=== PATIENT | female | born 2000 | race Hispanic/Latino ===

== ENCOUNTER 2021-02-08 14:36 | Outpatient (CLI) | payer OTHER ==
[~2021-02-08] VITALS: Ht 154.9 cm; Wt 91.7 kg
[2021-02-08 14:58] VITALS: BP 118/80
[2021-02-08] MEDS ORDERED: PRENTAB53 PO (15:00)
[2021-02-08 15:55] LABS: TOTAL PROTEIN,RANDOM URINE 40.5 MG/DL (0.0-12.0)
[2021-02-08 16:02] LABS: HEMATOCRIT 37.8 % (36.0-47.0); HEMOGLOBIN 12.3 g/dl (12.0-15.5); MEAN CORPUSCULAR HEMOGLOBIN 30.2 pg (27.0-33.0); MEAN CORPUSCULAR HGB CONC 32.5 g/dl (32.0-36.5); MEAN CORPUSCULAR VOLUME 92.9 fl (80.0-96.0); PLATELET COUNT, AUTOMATED 206 10^3/uL (150-450); RED BLOOD COUNT 4.07 10^6/uL (4.00-5.40); WHITE BLOOD COUNT 9.7 10^3/uL (4.0-10.0)
[2021-02-08 16:23] LABS: ALBUMIN 2.5 GM/DL (3.2-5.2); ALT/SGPT 18 U/L (12-78); AMYLASE 67 U/L (25-115); BILIRUBIN,TOTAL 0.2 MG/DL (0.2-1.0); BLOOD UREA NITROGEN 10 MG/DL (7-18); CARBON DIOXIDE LEVEL 22 MEQ/L (21-32); CHLORIDE LEVEL 110 MEQ/L (98-107); CREATININE FOR GFR 0.39 MG/DL (0.55-1.30); GLOMERULAR FILTRATION RATE > 60.0 (>60); GLUCOSE, FASTING 76 MG/DL (70-100); LDH LACTATE DEHYDROGENASE 190 U/L (84-246); LIPASE 121 U/L (73-393); SODIUM LEVEL 141 MEQ/L (136-145); TOTAL PROTEIN 6.4 GM/DL (6.4-8.2); URIC ACID 3.1 MG/DL (2.6-6.0)
[2021-02-08] MEDS ORDERED: ACETAMINOPHEN 500 MG TAB PO ONE (16:40)
[2021-02-08] MEDS ORDERED: CYCLOBENZAPRINE 10MG TABLET PO ONE (16:40)
--- NOTE | 2021-02-08 16:55 | IPNPDOC ---
Text Note Date of Service The patient was seen on 02/08/21. NOTE 20 yo at 36+5 weeks gestation presented to L&D with the complaint of abdominal pain, intermittent contractions, swelling in her feet, and decreased movement. She reports these symptoms have been present since last night. She describes the abdominal pain as occurring in her RUQ. She denies any association with eating or drinking. She denies n/v. She also denies any fevers/chills. She reports feeling the baby move but not as much as usual. Her swelling in her feet has been worsening as well too. She denies any headaches, RUQ pain, visual changes, or SOB. She reports feeling very hungry. Chaperoned by RN Vitals - VSS, afebrile, normotensive, non tachycardic General - sitting up in bed, AAOX3, NAD Abdomen - gravid uterus appropriate size for gestational age. No fundal tenderness. No rebound tenderness, guarding, or peritoneal signs. Cervix - Ft/thick/high, posterior. Unchanged on recheck > 1hour later. Extremities - 2+ edema in lower extremities FHR tracing - Cat I with moderate variability, +accels, no decels. Intermittent ctx on toco. Labs: Urinalysis - SG 1.027, 1+ blood, 1+ leuk est, 1+ protein urine pr:cr - 0.26 CBC - 9.7>12.3/37.8<206 BMP - 141/4.0--110/22--10/0.39<76 AST/ALT - 21/18 Amylase - 67 Lipase - 121 LDH - 190 Low suspicion for acute intraabdominal process. Lab work unremarkable and patient felt very hungry in triage. Dehydration likely contributing to symptoms based on urine SG. Cat I tracing with +accels and no decels. Patient felt movement in triage and was reassured. CMP, urine, and CBC not consistent with Pre E and Isha was normotensive. Cervix unchanged on serial exams. She felt significant improvement in symptoms after tylenol and flexeril. Discharged home with precautions. Follow up next week in the office as scheduled. Return to care sooner for worsening pain, bleeding, leakage of fluid, decreased movement, headaches, RUQ pain, visual changes, SOB, or any other urgent concerns. All questions answered. 60 minutes of patient care Chase Staples I+O VS, Chase, I+O Laboratory Tests 02/08/21 15:38 Vital Signs Date Time Temp Pulse Resp B/P (MAP) Pulse Ox O2 Delivery O2 Flow Rate FiO2 02/08/21 14:58 98.2 101 16 118/80 (93) 02/08/21 14:57 99 Room Air ALYSON BECKWITH DO February 08, 2021 16:55
[2021-02-08 17:11] VITALS: BP 124/73
[2021-02-08 18:11] VITALS: BP 120/72
== END 2021-02-08 18:20 | disposition home or self-care (01) ==
LOC: M LDO 14:36
PROVIDERS: ATTEND Obstetrics & Gynecology
DX: O26.893 Other specified pregnancy related conditions, third trimester (principal); Z3A.36 36 weeks gestation of pregnancy; R10.11 Right upper quadrant pain; O36.8130 Decreased fetal movements, third trimester, not applicable or unspecified; O12.03 Gestational edema, third trimester
CPT/HCPCS: 36415; 59025; 80053; 81001; 82150; 82247; 82565; 82570; 83615; 83690; 84156; 84450; 84460; 84550; 85027; 87086; G0378; G0463

== ENCOUNTER 2021-02-20 18:17 | Outpatient (CLI) | payer OTHER ==
[~2021-02-20] VITALS: Ht 154.9 cm; Wt 93.6 kg
[~2021-02-20 18:17] MED LIST: PRENTAB53 PO
[2021-02-20 19:33] VITALS: BP 137/73
[2021-02-20 19:35] VITALS: BP 120/60
[2021-02-20] MEDS ORDERED: FLUCONAZOLE 50MG TABLET PO ONE (22:00)
--- NOTE | 2021-02-20 22:08 | REPVR ---
PROCEDURE INFORMATION: Exam: US , Limited Exam date and time: 02/20/21 (8:58pm) Age: 20 years old Clinical indication: female (at 38 weeks 3 days). States leaking fluid today. Borderline low fluid. TECHNIQUE: Imaging protocol: Real-time ultrasound of the maternal uterus with image documentation. Examination focused on the clinical indication. COMPARISON: No relevant prior studies available FINDINGS: The LMP is reported to be: 05/27/20 A single live intrauterine is identified, approx. 38 weeks 3 days composite gestational age (CASSIE = 03/03/21). age parameters were not obtained at this time. heart rate is recorded at 135 bpm. The fetus lies cephalic. The placenta is anterior, with no evidence of previa. The placenta is Grade III. The cervix is closed, measuring 4.3 cm in length. Amniotic fluid volume is adequate, with the VIVI = 16.3 cm (at the 60th percentile for the current expected age). The deepest fluid pocket = 6.5 cm. Umbilical artery S/D ratio = 2.48 (in the normal range for this age). The stomahc, kidneys, and urinary bladder appear unremarkable. Cord seen draped over the neck. Cannot exclude nuchal cord. IMPRESSION: A single live intrauterine is identified, approx. 38 weeks 3 days gestational age. Based on data provided, the CASSIE = 03/03/21. heartbeat is seen. The placenta is anterior, with no previa noted. The cervix is closed. Cord seen draped over the neck. Cannot exclude nuchal cord. VIVI = 16.3 cm, and is adequate (at the 60th percentile for this age). Electronically signed by: Maggie Patel On 02/20/2021 22:08:20 PM
--- NOTE | 2021-02-20 22:33 | IPNPDOC ---
Text Note Date of Service The patient was seen on 02/20/21. NOTE 20 yo at 38+3 weeks gestation presented to L&D with the complaint of leakage of fluid starting at 1700 today. She denies any bleeding. She endorses intermittent contractions. She endorses excellent movement. Chaperoned by RN Vitals - VSS, afebrile, normotensive, non tachycardic General - AAOX3, sitting up in bed, NAD Abdomen - Gravid uterus appropriate size for gestational age, no fundal tenderness Pelvic - normal external female genitalia. Speculum inserted into the vagina. Copious chunky white discharge noted in the vaginal vault. Swabs obtained. Cervix visualized and normal appearing. No pooling of fluid. Negative leak of fluid with valsalva. Speculum removed. Cervix /-3 to digital exam. Microscopy - Negative ferning. Negative nitrazine. Large amount of yeast on slide. Bedside TAUS ( anatomy not assessed): Viable SIUP in cephalic presentation. +gross movement. VIVI somewhat difficult to ascertain secondary to movement and maternal body habitus. Formal US: IMPRESSION: A single live intrauterine is identified, approx. 38 weeks 3 days gestational age. Based on data provided, the CASSIE = 03/03/21. heartbeat is seen. The placenta is anterior, with no previa noted. The cervix is closed. Cord seen draped over the neck. Cannot exclude nuchal cord. VIVI = 16.3 cm, and is adequate (at the 60th percentile for this age). Electronically signed by: Maggie Patel On 02/20/2021 22:08:20 PM A/P: No evidence of ruptured membranes. Negative pooling, negative nitrazine, negative ferning. Formal VIVI normal. Cervix unchanged from the office a couple days ago. Reassuring status. Patient given dose of diflucan PO due to yeast infection. Patient discharged home with return precautions. All patient and questions answered. 45 minutes of patient care Sagar Puentes DO VS,Chase, I+O VS, Fishbone, I+O Vital Signs Date Time Temp Pulse Resp B/P (MAP) Pulse Ox O2 Delivery O2 Flow Rate FiO2 02/20/21 19:35 98.4 99 18 120/60 (80) SAGAR PUENTES DO Feb 20, 2021 22:33
== END 2021-02-20 22:26 | disposition home or self-care (01) ==
LOC: M LDO 18:17 → UNDOADMIN 18:17 → M LDI 18:17 → UNDODISIN 22:26 → M LDO 22:26 → EDSTATUS 02-24 16:46
PROVIDERS: ATTEND Registered Nurse Maternal Newborn
DX: O47.1 False labor at or after 37 completed weeks of gestation (principal); Z3A.38 38 weeks gestation of pregnancy; O23.593 Infection of other part of genital tract in pregnancy, third trimester; B37.9 Candidiasis, unspecified
CPT/HCPCS: 59025; 76815; 76820; G0378; G0463

== ENCOUNTER 2021-02-21 15:47 | Outpatient (CLI) | payer OTHER ==
[~2021-02-21] VITALS: Ht 154.9 cm; Wt 92.8 kg
[2021-02-21 16:01] VITALS: BP 131/78
--- NOTE | 2021-02-21 17:17 | IPNPDOC ---
Obstetrical Progress Note Date of Service Feb 21, 2021 Subjective Ms. Shoemaker is a 20yo at 38+4 presenting for ROM check. She reports she felt like her water broke again, as she came in yesterday for a ROM check, at 1400 today. She also passed a dime sized blood clot. She otherwise denied regular painful contractions or decreased FM. She otherwise denied n/v/d, cp, sob, wall, visual changes, f/c, urinary sx. Assessment Heart Rate (FHR): 135 Variability: Moderate Accelerations: Positive Decelerations: None Heart Rate Tracing: Category I Tocometer Contractions: Yes Frequency: irregular Sterile Vaginal Examination Dilation: 1cm Station: -3 Cervical Consistency: Medium Cervical Position: Posterior Postion/Presentation: Cephalic presentation Assessment and Plan Status: Reassuring Additional Comments Ms. Shoemaker is a 20yo at 38+4 presenting for ROM check, she had a negative ROM check yesterday. She also passed a dime sized clot once today. VS normal. CAT I tracing reactive. Irregular contractions. On exam small amount of discharge but no pooling with valsalva and no ferning. CHLOE/WP were negative. There was no old blood or active bleeding. White swab placed into posterior fornix and there was no evidence of bleeding. She has had prior scans ruling out placenta previa. On TAUS today her baby was cephalic, +FM, with MVP 6.5cm. Her SVE was 1/50/-3 which is unchanged from yesterday. Given the clinical picture rupture and labor are unlikley at this time. The bleeding is likely from disruption of the cervix yesterday during her exam. Patient was educated on routine OB return precautions and is to otherwise follow up at her next [place]. GEOFFREY JOHN DO Feb 21, 2021 17:17
[2021-02-22] MEDS ORDERED: ACET-842 PO (08:08)
== END 2021-02-21 17:15 | disposition home or self-care (01) ==
LOC: M LDO 15:47
PROVIDERS: ATTEND Registered Nurse Maternal Newborn
DX: O26.853 Spotting complicating pregnancy, third trimester (principal); Z3A.38 38 weeks gestation of pregnancy
CPT/HCPCS: 59025; 76815; 87086; G0378; G0463

== ENCOUNTER 2021-02-22 07:05 | Inpatient (IN) | payer OTHER ==
[2021-02-22] VITALS (39 sets, daily range): BP systolic 117–198; BP diastolic 58–102
[~2021-02-22] VITALS: Ht 154.9 cm; Wt 93.0 kg
[2021-02-22] MEDS ORDERED: ACET-842 PO (08:08)
--- NOTE | 2021-02-22 08:13 | HPEPDOC ---
Obstetrical History & Physical General Date of Admission Feb 22, 2021 at 07:58 History of Present Illness Ms. Shoemaker is a 20yo at 38+5 who presented to labor and delivery in early labor and was having mild range blood pressures. She denied vb, lof, decreased fm. She denied n/v/d, cp, sob, wall, visual changes, abd pain, f/c, urinary sx. 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 Past Medical History Medical History overweight, excessive weight gain in , varicella non-immune Surgical History: Denies/None Family History Significant Family History: No pertinent family hx Social History Marital Status: Family situation: Spouse/partner home Psychosocial History: No pertinent psych hx * Smoker: non-smoker Alcohol: Denies Drugs: denies Imunizations Tdap status: current Influenza Status: needs Allergies Coded Allergies: No Known Allergies (Unverified , 02/22/21) Medications Scheduled Vit,Calc76/Iron/Folic (Prenatabs Rx Tablet) 1 Each Tablet, 1 TAB PO DAILY Physical Examination Physical Examination GENERAL: Alert and oriented times three. BREAST: . ABDOMEN: Gravid and non-tender to touch. FETUS: Is vertex (VTX) by sterile vaginal examination (SVE), fetus is vertex (VTX) by US HEART RATE: Regular rate and rhythm. LUNGS: Clear to auscultation (CTA). EXTREMITIES: No edema. No clonus. Laboratory Data Urine Culture: No Growth (TOC0), Urinary Tract Infection Pertinent Laboratoy Data Blood Type: A- RBC Antibody Screen: Negative HIV: Negative Hepatitis B: Negative Rubella: Immune Varicella: Nonreactive Chlamydia/Gonorrhea: Negative Group B Streptococcus: Negative Quad Screen Test: Negative Cystic Fibrosis: Declined Glucose Tolerance Test: 127 Anatomy Ultrasound Placenta Location: Anterior Normal Anatomy: Yes Steroid Therapy Steroid Therapy: No Vaginal Examination Dilation: 4 cm Effacement: 90% Station: -2 Cervical Consistency: Soft Cervical Position: Middle Presentation: Cephalic presentation (by US) Assessment Heart Rate (FHR): 140 Variability: Moderate Accelerations: Positive Decelerations: None Tocometer Contractions: Yes Frequency: regular Multi-drug resistant Organism: No history of MDRO Assessment/Plan Assessment Ms. Shoemaker is a 20yo at 38+5 who presented to labor and delivery in early labor and was having mild range blood pressures. She denied si/sx of pre- eclampsia. She was 4/90/-1 on arrival with a BBOW. CAT I NST. APC 1. Rh negative, recieved 28wk rhogam 2. overweight, excessive weight gain 64# 3. varicella non-immune Rh neg, GBS neg, ceph by US, EFW 3600, placenta anterior Plan Admit and orient. Precision Dancer and consent. Diet: clears Group B Streptococcus (GBS) [negative]. Labs and intravenous (IV) per unit protocol. Counseled on Pitocin and induction of labor (IOL). Lactated Ringers (LR): saline lock Anticipate [normal spontaneous delivery ()]. C-S as appropriate. GEOFFREY JOHN DO Feb 22, 2021 08:13
[2021-02-22] MEDS ORDERED: LIDOCAINE 1% MDV 20ML VIAL INFIL PRN (08:15)
[2021-02-22] MEDS ORDERED: OXYTOCIN DRIP 30 UNITS in IV 1 EA IV PRN (08:15)
[2021-02-22 08:37] LABS: HEMATOCRIT 40.8 % (36.0-47.0); HEMOGLOBIN 13.6 g/dl (12.0-15.5); MEAN CORPUSCULAR HEMOGLOBIN 30.4 pg (27.0-33.0); MEAN CORPUSCULAR HGB CONC 33.3 g/dl (32.0-36.5); MEAN CORPUSCULAR VOLUME 91.3 fl (80.0-96.0); PLATELET COUNT, AUTOMATED 197 10^3/uL (150-450); RED BLOOD COUNT 4.47 10^6/uL (4.00-5.40); WHITE BLOOD COUNT 12.8 10^3/uL (4.0-10.0)
[2021-02-22] MEDS ORDERED: LACTATED RINGER'S 1000 ML IV STA (08:50)
--- NOTE | 2021-02-22 09:00 | IPNPDOC ---
Text Note Date of Service The patient was seen on 02/22/21. NOTE Assuming Care Note: Assuming care of this 20-year-old 2, para 0010 at 38w5d EGA with a PNC c/b Rh- blood type, Overweight with excessive weight gain of 64 pounds in this , and Varicella Non-Immune. Patient was admitted in early active labor at 4 cm, 90% effaced, -1. She denies a history of asthma & chronic hypertension. Also denies history of abdominal surgeries. She is Rh-, GBS negative, Rubella Immune, Hepatitis B, HIV and RPR negative. Admission hematocrit was 40.8%. Placenta is anterior. Vertex presentation was confirmed by examination. EFW is 3500 g. Last SVE: /-1 at 07:30. heart tracing, heart rate 140 bpm with moderate variability, positive accelerations, no decelerations. TOCO: regular uterine contractions Plan: Patient would like epidural anesthesia at this time. Will provide 1000 mL bolus of lactated Ringer's. Will repeat SVE 2 hours after last check Hardeep Jones, Ph.D. [employer]ENT Staff Chase BHATIA I+Chase ALMANZA I+Art Laboratory Tests 02/22/21 08:24 DALLAS MENDOZA M.D. Feb 22, 2021 09:00
[2021-02-22 09:13] LABS: ALT/SGPT 16 U/L (12-78); BILIRUBIN,TOTAL 0.2 MG/DL (0.2-1.0); GLOMERULAR FILTRATION RATE > 60.0 (>60); LDH LACTATE DEHYDROGENASE 241 U/L (84-246); URIC ACID 3.5 MG/DL (2.6-6.0)
[2021-02-22] MEDS ORDERED: FENTANYL 2MCG/ML ROPIVACAINE 0.2% IN 0.9% NACL 100ML IVBAG As Ordered ONE (09:27)
[2021-02-22] MEDS ORDERED: REFRIGERATOR IV KEYS XX PRN (10:45)
[2021-02-22] MEDS ORDERED: EPIDURAL COMMENT XX SCH (10:45)
[2021-02-22] MEDS ORDERED: FENTANYL/ROPIVACAINE/NACL BAG 100 ML EPIDURAL SCH (10:45)
[2021-02-22] MEDS ORDERED: diphenhydrAMINE 50MG/ML VIAL (J1200) IV PRN (10:45)
[2021-02-22] MEDS ORDERED: EPIDURAL/PCA KEYS XX PRN (10:45)
[2021-02-22] MEDS ORDERED: LACTATED RINGER'S 1000 ML IV PRN (10:45)
[2021-02-22] MEDS ORDERED: ePHEDrine SULFATE 25 MG/5 ML(5MG/ML) SYRINGE IV PRN (10:45)
[2021-02-22] MEDS ORDERED: ONDANSETRON 4MG/2ML VIAL IV PRN (10:45)
[2021-02-22] MEDS ORDERED: NALOXONE INJ 0.4MG/1ML VIAL (J2310 PER 1MG) IV PRN (10:45)
--- NOTE | 2021-02-22 12:31 | IPNPDOC ---
Obstetrical Progress Note Date of Service Feb 22, 2021 Subjective Mrs. Isha Shoemaker is a 20yo at 38w5d ega admitted in Early Active Labor at /-1. Patient reports still being uncomfortable after her epidural was placed. Anesthesiologist to room and increased bolus. Assessment Heart Rate (FHR): 130 Variability: Moderate Accelerations: Positive Decelerations: None Heart Rate Tracing: Category I Tocometer Contractions: Yes Frequency: regular, every 1-3 min. Sterile Vaginal Examination Dilation: 5 cm Effacement (%): 90% Station: 0 Cervical Consistency: Soft Cervical Position: Middle Postion/Presentation: Cephalic presentation Assessment and Plan Age: 20 : 2 Term: 0 Pre-term: 0 Abortions: 1 Livin EGA at Admission: 38 Weeks & Days 38w5d Status: Reassuring Group B Streptococcus: Negative Anticipate: Vaginal Delivery Additional Comments A/P: 20yo at 38w5d ega who is in early active labor at /0. - Amniotomy performed productive of clear fluid - Repeat SVE in 2-hours, or as clinically indicated - Continue to monitor FHT Jenny Jones., Ph.D [employer] OB-TREATMENT MANAGER Staff DALLAS MENDOZA M.D. Feb 22, 2021 12:31
--- NOTE | 2021-02-22 13:56 | IPNPDOC ---
Obstetrical Progress Note Date of Service Feb 22, 2021 Subjective Mrs. Isha Shoemaker is a 20yo at 38w5d ega admitted in Early Active Labor at 4/90/-1 on Wednesday, 22 Feb 2021. Patient states that she feels "lots of pressure". Assessment Heart Rate (FHR): 130 Variability: Moderate Accelerations: Positive Decelerations: None Heart Rate Tracing: Category I Tocometer Contractions: Yes Frequency: regular, every 1-3 min. Sterile Vaginal Examination Dilation: complete Effacement (%): 100% Station: +2 Cervical Consistency: Soft Cervical Position: Anterior Postion/Presentation: Cephalic presentation Assessment and Plan Age: 20 : 2 Term: 1 Pre-term: 0 Abortions: 1 Livin Weeks & Days 38+5 Status: Reassuring Group B Streptococcus: Negative Anticipate: Vaginal Delivery Additional Comments Will begin pushing. DALLAS MENDOZA M.D. Feb 22, 2021 13:56
[2021-02-22] MEDS ORDERED: MEASLES,MUMPS,RUBELLA VACCINE INJ (MMR-II) (90707) SC SCH (14:40)
[2021-02-22] MEDS ORDERED: DIBUCAINE 1% OINTMENT 30GM TOP PRN (14:40)
[2021-02-22] MEDS ORDERED: ACETAMINOPHEN TAB 650MG DOSE (2X325MG) PO PRN (14:40)
[2021-02-22] MEDS ORDERED: RHOGAM 300 MCG (1500 IU) INJ (J2790) IM SCH (14:40)
[2021-02-22] MEDS ORDERED: IBUPROFEN 600MG TAB PO PRN (14:40)
[2021-02-22] MEDS ORDERED: ACETAMINOPHEN 500 MG TAB PO PRN (14:40)
[2021-02-22] MEDS ORDERED: DOCUSATE SODIUM 100MG CAPSULE PO PRN (14:40)
--- NOTE | 2021-02-22 14:47 | DNPDOC ---
[facility] Delivery Note Delivery Note DATE OF DELIVERY: 22 February 2021 at 14:17 PREDELIVERY DIAGNOSIS: 38w5d ega POST DELIVERY DIAGNOSIS: Delivered. PROCEDURE: Spontaneous Vaginal Delivery PATIENT SVCS MGR: Arvin Mendoza M.D., Ph.D. ANESTHESIA: Epidural ESTIMATED BLOOD LOSS: 400mL FINDINGS: 7 pound 1 ounce (3190-grams) male , Score 9/9 DELIVERY SUMMARY: Mrs. Sharif progressed steadily after admission and AROM to C/C/+2. She had a strong urge to push. The bed was broken down and she was prepped for delivery. With excellent effort over about only 16 minutes her baby delivered. Presentation was OA with restitution to ROT. A loose nuchal cord was reduced at the perineum. The left anterior shoulder delivered with gentle traction followed easily by the remainder of the body. The infant was dried and stimulated on the field and a bulb suction was used. The infant was placed on the maternal abdomen and cried vigorously. The three vessel umbilical cord was then clamped and cut by the FOB after appropriate time delay and under my direction. Third stage was completed with gentle traction on on the cord and it was productive of an intact placenta. The uterus was firmed with massage, pitocin IV bolus, and methergine 0.2mg IM. Inspection of the cervix, vagina, labia, and perineum revealed a midline second degree laceration. This was repaired with 2-0 vicryl suture in the usual fashion. There was excellent cosmesis and hemostasis after the repair. The fundus was palpated again and was firm. 1000mcg of Cytotec was placed rectally to ensure uterine contraction. Sponge, instrument, and needle counts were correct X2. Mother and infant stable when I left the room. ARVIN MENDOZA M.D. Feb 22, 2021 14:47
[2021-02-22] MEDS ORDERED: METHYLERGONOVINE MALEATE 0.2 MG/ML VIAL (J2210) IV STA (14:49)
[2021-02-22] MEDS: IBUPROFEN 800 MG TAB PO PRN (20:30)
[2021-02-23 06:00] VITALS: BP 114/56
--- NOTE | 2021-02-23 07:14 | IPNPDOC ---
Progress Note Date of Service: Feb 23, 2021 Day#: 1 Progress Note SUBJECT: Mrs. Isha Shoemaker is a 20yo G2 now P1011 who is PPD#1 status post an uncomplicated spontaneous vaginal delivery at 38w5d ega. Mrs. Shoemaker delivered a male infant on Wednesday, 22 February 2021 at 14:17 with APGARS 9/9. Following delivery, she was found to have a 2nd degree perineal laceration that was repaired in the standard fashion. This morning, the patient reports that her pain is minimal; she has been a mbulating; voiding spontaneously; passing flatus; and is tolerating a regular diet. She is currently bottle feeding (w/ thoughts of converting to breast feeding) and reports minimal lochia. OBJECTIVE: VITAL SIGNS: Within normal limits, afebrile. General: Alert and oriented times three. Lungs: Breath sounds clear to auscultation. Heart rate: Regular rate and rhythm, no murmurs, rubs or gallops. Abdomen: Fundus firm at U-2. Soft, NTTP. Minimal lochia (per pt report) ASSESSMENT: Mrs. Isha Shoemaker is a 20yo G2 now P1011 who is PPD#1 status post an uncomplicated spontaneous vaginal delivery who is hemodynamically stable and doing well. PLAN: 1. Tylenol and Motrin for pain. 2. Encouraged patient to attempt breast feeding (if she is truly interested) and increased ambulation. 3. Patient will consider what type of contraception she would like and let us know on PPD#2 4. Patient to determine if she would like her son circumcised and let us know on PPD#2 5. Routine PP visit in 6 weeks in clinic. 6. Discussed return precautions at length. VS, I&O, 24H, Fishbone Vital Signs/I&O Vital Signs Date Time Temp Pulse Resp B/P (MAP) Pulse Ox O2 Delivery O2 Flow Rate FiO2 02/23/21 06:00 97.1 104 18 114/56 (75) 99 Room Air I&O- Last 24 Hours up to 6 AM 02/23/21 06:00 Output Total 400 ml Balance -400 ml Laboratory Data 24H LABS Laboratory Tests 2 02/22/21 08:10: Serology Scanned Report Hepatitis B Testing 02/22/21 08:24: Nucleated Red Blood Cells % (auto) 0.0, Glomerular Filtration Rate > 60.0, Uric Acid 3.5, Total Bilirubin 0.2, Aspartate Amino Transf (AST/SGOT) 24, Alanine Aminotransferase (ALT/SGPT) 16, Lactate Dehydrogenase 241 CBC/BMP Laboratory Tests 02/22/21 08:24 DALLAS MENDOZA M.D. Feb 23, 2021 07:14
[2021-02-23] MEDS: PRENATAL VITAMINS CHEWABLE TABLET PO SCH (07:48)
[2021-02-23] MEDS: IBUPROFEN 800 MG TAB PO PRN (07:48)
[2021-02-23] MEDS ORDERED: METAL LOCK LOOP XX ONE (08:52)
[2021-02-23 17:53] VITALS: BP 115/63
[2021-02-24] MEDS ORDERED: ACET-683 PO (05:32)
--- NOTE | 2021-02-24 05:38 | OBDS ---
[facility] Obstetrical Discharge Sum. Obstetrical Discharge Summary Date: Feb 24, 2021 Time: 05:30 : 2 Term: 1 Pre-term: 0 Abortions: 1 Livin VDRL: ABO Blood Group (B-) Rh: Negative Rubella: Immune Sex: Male Infant Weight: pounds (7), ounces (1), grams (3190) Anesthesia: Regional Anesthesia A/P, Post Course List any complications Admission diagnosis: Early Active Labor with mild range blood pressures. Discharge diagnosis: Spontaneous Vaginal Delivery Condition at Discharge: Stable Discharge Instructions: Home Activity: As tolerated Diet: Regular Medications: Motrin & Tylenol Follow-up: 6-week visit at [facility] Other: None SUBJECT: Mrs. Isha Shoemaker is a 20yo G2 now P1011 who is PPD#2 status post an uncomplicated spontaneous vaginal delivery at 38w5d ega. Mrs. Shoemaker delivered a male weighing 3190-grams with APGARS 9/9 on Wednesday, 22 February 2021 at 14:17. Following delivery, she was found to have a 2nd degree perineal laceration that was repaired in the standard fashion. EBL was 400mL. This morning, the patient reports that her pain is minimal; she has been ambulating; voiding spontaneously; passing flatus; and is tolerating a regular diet. She is currently bottle feeding (w/ thoughts of converting to breast feeding) and reports minimal lochia. The patient was given Rhogam on PPD#1. Of note, her male infant was circumcised on Wednesday, 23 February 2021. OBJECTIVE: VITAL SIGNS: Within normal limits, afebrile. General: Alert and oriented times three. Lungs: Breath sounds clear to auscultation. Heart rate: Regular rate and rhythm, no murmurs, rubs or gallops. Abdomen: Fundus firm at U-2. Soft, NTTP. Minimal lochia ASSESSMENT: Mrs. Isha Shoemaker is a 20yo G2 now P1011 who is PPD#2 status post an uncomplicated spontaneous vaginal delivery who is hemodynamically stable and doing well. PLAN: 1. Tylenol and Motrin for pain. 2. Encouraged patient to attempt breast feeding (if she is truly interested) and increased ambulation. 3. Will discuss contraception at 6-week PP visit 4. Routine PP visit in 6 weeks in clinic. 5. Discussed return precautions at length. DALLAS MENDOZA M.D. Feb 24, 2021 05:38
[2021-02-24 06:20] VITALS: BP 124/78
[2021-02-24] MEDS: PRENATAL VITAMINS CHEWABLE TABLET PO SCH (08:25)
[2021-02-24] MEDS: IBUPROFEN 800 MG TAB PO PRN (08:25)
== END 2021-02-24 12:47 | disposition home or self-care (01) | DRG 807 ==
LOC: M LDO 07:05 → M LDI 07:58 → M OBS 17:00
PROVIDERS: ADMIT Obstetrics & Gynecology; ATTEND Obstetrics & Gynecology Reproductive Endocrinology
PROC: 10E0XZZ Delivery of Products of Conception, External Approach (ICD-10-PCS; principal; 2021-02-22)
PROC: 0KQM0ZZ Repair Perineum Muscle, Open Approach (ICD-10-PCS; 2021-02-22)
PROC: 10907ZC Drainage of Amniotic Fluid, Therapeutic from Products of Conception, Via Natural or Artificial Opening (ICD-10-PCS; 2021-02-22)
DX: O69.81X0 Labor and delivery complicated by cord around neck, without compression, not applicable or unspecified (principal); Z37.0 Single live birth; Z3A.38 38 weeks gestation of pregnancy; O70.1 Second degree perineal laceration during delivery

== ENCOUNTER 2021-03-03 15:23 | Emergency (ER) | payer OTHER ==
[~2021-03-03] VITALS: Ht 154.9 cm; Wt 83.5 kg
[~2021-03-03 15:23] MED LIST changes: +ACET-683 PO; +ACET-842 PO
[2021-03-03] MEDS ORDERED: IBUP80TA PO (15:38)
[2021-03-03] MEDS ORDERED: DICLOXACILLIN 250 MG CAP PO STA (17:31)
[2021-03-03] MEDS ORDERED: DICL500C PO (17:35)
[2021-03-03 18:18] VITALS: BP 123/70
== END 2021-03-03 18:22 | disposition home or self-care (01) ==
LOC: M ED 15:23
DX: N64.4 Mastodynia (principal); R50.9 Fever, unspecified